=== PATIENT | male | born 1940 | race Caucasian/White ===

== ENCOUNTER → 2016-08-23 | Outpatient (CLI) | payer MEDICARE, BC ==
--- NOTE | 2016-08-23 13:47 | CR ---
EXAMINATION: Lumbar spine HISTORY: Sciatica COMPARISON: None TECHNIQUE: AP and lateral views FINDINGS: There is a trace retrolisthesis of L2 on L3. There is likely minimal wedging of the L1 and L2 vertebral bodies. Mild disc space narrowing is noted at L5-S1. Mild marginal osteophytes are not ed. Mild vascular calcifications are noted. The SI joints are symmetric. IMPRESSION: Mild degenerative changes without acute findings.
== END ==
LOC: MW.CHFP 09:31
PROVIDERS: ATTEND Emergency Medicine
DX: M54.40 Lumbago with sciatica, unspecified side (principal); M47.896 Other spondylosis, lumbar region; L98.9 Disorder of the skin and subcutaneous tissue, unspecified
CPT/HCPCS: 72100; 72100-26; G0463

== ENCOUNTER 2017-06-30 21:46 | Emergency (ER) | payer MEDICARE, BC ==
[2017-06-30] MEDS ORDERED: Ondansetron 4 MG/2 ML SDV IVPUSH ONE (22:03)
[2017-06-30] MEDS ORDERED: Sodium Chloride 0.9% 10 ML Syringe FLUSH PRN (22:03)
[2017-06-30] MEDS ORDERED: Sodium Chloride 0.9% 2.5 ML Syringe FLUSH PRN (22:03)
[2017-06-30] MEDS ORDERED: Aspirin 81 MG Tab.Chew PO ONE (22:03)
[2017-06-30] MEDS ORDERED: Morphine 4 MG/ML Syringe IVPUSH ONE (22:03)
--- NOTE | 2017-06-30 22:12 | EDM.PDOC ---
ED HPI GENERAL MEDICAL PROBLEM - General Chief Complaint: Abdominal Pain Stated Complaint: CHEST PAIN Time Seen by Provider: 06/30/17 22:50 - History of Present Illness INITIAL COMMENTS - FREE TEXT/NARRATIVE: HISTORY AND PHYSICAL: History of present illness: Patient is a 76-year-old white male with history of coronary artery disease who had stent placement 2 years prior [facility] who presents with her chest pain that started 3 hours prior to arrival patient equivocates regarding diaphoresis or shortness of breath he denies nausea vomiting or palpitations he is currently on Cialis. Review of systems: As per history of present illness and below otherwise all systems reviewed and negative. Past medical history: As per history of present illness and as reviewed below otherwise noncontributory. Surgical history: As per history of present illness and as reviewed below otherwise noncontributory. Social history: No reported history of drug or alcohol abuse. Family history: As per history of present illness and as reviewed below otherwise noncontributory. Physical exam: HEENT: Atraumatic, normocephalic, pupils reactive, negative for conjunctival pallor or scleral icterus, mucous membranes moist, throat clear, neck supple, nontender, trachea midline. Lungs: Clear to auscultation, breath sounds equal bilaterally, chest nontender. Heart: S1S2, regular, negative for clicks, rubs, or JVD. Abdomen: Soft, nondistended, nontender. Negative for masses or hepatosplenomegaly. Negative for costovertebral tenderness. Pelvis: Stable nontender. Genitourinary: Deferred. Rectal: Deferred. Extremities: Atraumatic, negative for cords or calf pain. Neurovascular unremarkable. Neuro: Awake, alert, oriented. Cranial nerves II through XII unremarkable. Cerebellum unremarkable. Motor and sensory unremarkable throughout. Exam nonfocal. Diagnostics: CBC CMP PT/INR troponin chest x-ray EKG Therapeutics: Saline 125 an hour morphine sulfate 4 mg IV Zofran 4 mg IV aspirin 324 mg by mouth Impression: #1 chest pain #2 history coronary artery disease with stent placement 2 Definitive disposition and diagnosis as appropriate pending reevaluation and review of above. Upper Abdomen Pain Score (Numeric/FACES): 8 - Related Data Allergies Allergy/AdvReac Type Severity Reaction Status Date / Time codeine Allergy unknown Verified 06/30/17 21:59 Xnsfufh-Baf-Ouv Reductase Allergy UNKNOWN Verified 06/30/17 21:59 Inhibitor sulfamethoxazole Allergy UNKNOWN Verified 06/30/17 21:59 [From Bactrim] trimethoprim [From Bactrim] Allergy UNKNOWN Verified 06/30/17 21:59 Home Meds: Home Meds Ezetimibe/Simvastatin [Vytorin 10-40 mg Tablet] 1 tab PO DAILY 07/08/14 [History ] Pantoprazole [ProTONIX Granules] 1 tab PO DAILY 07/08/14 [History] Aspirin [Adult Low Dose Aspirin EC] 1 tab PO DAILY 07/10/14 [History] ALPRAZolam [Alprazolam] 0.25 mg PO DAILY 06/30/17 [History] Cholecalciferol (Vitamin D3) [Vitamin D] 2,000 unit PO DAILY 06/30/17 [History] Fish Oil/[place]-3 Fatty Acids [Fish Oil] 500 mg PO DAILY 06/30/17 [History] Tadalafil [Cialis] 5 mg PO DAILY 06/30/17 [History] amLODIPine [Norvasc] 2.5 mg PO DAILY 06/30/17 [History] Social & Family History - Tobacco Use Smoking Status *Q: Never Smoker - Alcohol Use Days Per Week of Alcohol Use: 0 Number of Drinks Per Day: 0 Total Drinks Per Week: 0 - Recreational Drug Use Recreational Drug Use: No Drug Use in Last 12 Months: No ED ROS GENERAL - Review of Systems Review Of Systems: ROS reveals no pertinent complaints other than HPI. ED EXAM, GENERAL - Physical Exam Exam: See Below (See dictation) Course - Vital Signs Last Recorded V/S: Last Vital Signs Temp 36.6 C 06/30/17 21:56 Pulse 73 06/30/17 21:56 Resp 16 06/30/17 21:56 BP 189/110 H 06/30/17 21:56 Pulse Ox 94 L 06/30/17 21:56 - Orders/Labs/Meds Orders: Active Orders 24 hr Category Date Time Status EKG Documentation Completion [RC] STAT Care 06/30/17 22:03 Active Oxygen Therapy, ED [RC] ASDIRECTED Care 06/30/17 22:02 Active Chest 1V Frontal [CR] Stat Exams 06/30/17 22:03 Taken Sodium Chloride 0.9% [Normal Saline] 1,000 ml Med 06/30/17 22:15 Active IV STAT Sodium Chloride 0.9% [Saline Flush] Med 06/30/17 22:03 Active 10 ml FLUSH ASDIRECTED PRN Sodium Chloride 0.9% [Saline Flush] Med 06/30/17 22:03 Active 2.5 ml FLUSH ASDIRECTED PRN Saline Lock Insert [OM.PC] Stat Oth 06/30/17 22:02 Ordered Medication Orders Sodium Chloride (Normal Saline) 1,000 mls @ 125 mls/hr IV STAT SHIRA Last Admin: 06/30/17 22:17 Dose: 125 mls/hr Sodium Chloride (Saline Flush) 10 ml FLUSH ASDIRECTED PRN PRN Reason: Keep Vein Open Last Admin: 06/30/17 22:22 Dose: 10 ml Sodium Chloride (Saline Flush) 2.5 ml FLUSH ASDIRECTED PRN PRN Reason: Keep Vein Open Last Admin: 06/30/17 22:22 Dose: 2.5 ml Labs: Laboratory Tests 06/30/17 06/30/17 06/30/17 Range/Units 22:12 22:12 22:12 WBC 6.87 (4.0-11.0) K/uL RBC 5.47 (4.50-5.90) M/uL Hgb 15.5 (13.0-17.0) g/dL Hct 44.0 (38.0-50.0) % MCV 80.4 (80.0-98.0) fL MCH 28.3 (27.0-32.0) pg MCHC 35.2 (31.0-37.0) g/dL RDW Std Deviation 39.8 (28.0-62.0) fl RDW Coeff of Cherise 14 (11.0-15.0) % Plt Count 182 (150-400) K/uL MPV 9.90 (7.40-12.00) fL Neut % (Auto) 48.4 (48.0-80.0) % Lymph % (Auto) 38.0 (16.0-40.0) % Ashley % (Auto) 9.8 (0.0-15.0) % Eos % (Auto) 3.2 (0.0-7.0) % Baso % (Auto) 0.6 (0.0-1.5) % Neut # (Auto) 3.3 (1.4-5.7) K/uL Lymph # (Auto) 2.6 H (0.6-2.4) K/uL Ashley # (Auto) 0.7 (0.0-0.8) K/uL Eos # (Auto) 0.2 (0.0-0.7) K/uL Baso # (Auto) 0.0 (0.0-0.1) K/uL Nucleated RBC % 0.0 /100WBC Nucleated RBCs # 0 K/uL INR 0.95 Sodium 140 (136-148) mmol/L Potassium 3.9 (3.5-5.1) mmol/L Chloride 105 (98-107) mmol/L Carbon Dioxide 24.9 (21.0-32.0) mmol/L BUN 19 H (7.0-18.0) mg/dL Creatinine 1.3 (0.8-1.3) mg/dL Est Cr Clr Drug Dosing 51.47 mL/min Estimated GFR (MDRD) 54.0 ml/min Glucose 126 H (74-106) mg/dL Calcium 9.2 (8.5-10.1) mg/dL Total Bilirubin 0.4 (0.2-1.0) mg/dL AST 23 (15-37) IU/L ALT 31 (14-63) IU/L Alkaline Phosphatase 70 (46-116) U/L Troponin I < 0.050 (0.000-0.056) ng/mL B-Natriuretic Peptide (<100) PG/ML Total Protein 7.1 (6.4-8.2) g/dL Albumin 4.1 (3.4-5.0) g/dL Globulin 3.0 (2.0-3.5) g/dL Albumin/Globulin Ratio 1.4 (1.3-2.8) 06/30/17 Range/Units 22:12 WBC (4.0-11.0) K/uL RBC (4.50-5.90) M/uL Hgb (13.0-17.0) g/dL Hct (38.0-50.0) % MCV (80.0-98.0) fL MCH (27.0-32.0) pg MCHC (31.0-37.0) g/dL RDW Std Deviation (28.0-62.0) fl RDW Coeff of Cherise (11.0-15.0) % Plt Count (150-400) K/uL MPV (7.40-12.00) fL Neut % (Auto) (48.0-80.0) % Lymph % (Auto) (16.0-40.0) % Ashley % (Auto) (0.0-15.0) % Eos % (Auto) (0.0-7.0) % Baso % (Auto) (0.0-1.5) % Neut # (Auto) (1.4-5.7) K/uL Lymph # (Auto) (0.6-2.4) K/uL Ashley # (Auto) (0.0-0.8) K/uL Eos # (Auto) (0.0-0.7) K/uL Baso # (Auto) (0.0-0.1) K/uL Nucleated RBC % /100WBC Nucleated RBCs # K/uL INR Sodium (136-148) mmol/L Potassium (3.5-5.1) mmol/L Chloride (98-107) mmol/L Carbon Dioxide (21.0-32.0) mmol/L BUN (7.0-18.0) mg/dL Creatinine (0.8-1.3) mg/dL Est Cr Clr Drug Dosing mL/min Estimated GFR (MDRD) ml/min Glucose (74-106) mg/dL Calcium (8.5-10.1) mg/dL Total Bilirubin (0.2-1.0) mg/dL AST (15-37) IU/L ALT (14-63) IU/L Alkaline Phosphatase (46-116) U/L Troponin I (0.000-0.056) ng/mL B-Natriuretic Peptide 50 (<100) PG/ML Total Protein (6.4-8.2) g/dL Albumin (3.4-5.0) g/dL Globulin (2.0-3.5) g/dL Albumin/Globulin Ratio (1.3-2.8) Meds: Medications Generic Name Dose Route Start Last Admin Trade Name Freq PRN Reason Stop Dose Admin Sodium Chloride 1,000 mls @ 125 mls/hr 06/30/17 22:15 06/30/17 22:17 Normal Saline IV 125 mls/hr STAT SHIRA Administration Sodium Chloride 10 ml 06/30/17 22:03 06/30/17 22:22 Saline Flush FLUSH 10 ml ASDIRECTED PRN Administration Keep Vein Open Sodium Chloride 2.5 ml 06/30/17 22:03 06/30/17 22:22 Saline Flush FLUSH 2.5 ml ASDIRECTED PRN Administration Keep Vein Open Discontinued Medications Generic Name Dose Route Start Last Admin Trade Name Dino PRN Reason Stop Dose Admin Aspirin 324 mg 06/30/17 22:03 06/30/17 22:21 Aspirin PO 06/30/17 22:04 324 mg ONETIME ONE Administration Morphine Sulfate 4 mg 06/30/17 22:03 06/30/17 22:20 Morphine IVPUSH 06/30/17 22:04 4 mg ONETIME ONE Administration Ondansetron HCl 4 mg 06/30/17 22:03 06/30/17 22:18 Zofran IVPUSH 06/30/17 22:04 4 mg ONETIME ONE Administration Departure - Departure Time of Disposition: 22:50 Disposition: DC/Tfer to Acute Hospital 02 Condition: Serious Clinical Impression: Unstable angina - Discharge Information Referrals: Grant Rivas MD [Primary Care Provider] - Forms: ED Department Discharge - My Orders Last 24 Hours: My Active Orders 06/30/17 22:02 Oxygen Therapy, ED [RC] ASDIRECTED Saline Lock Insert [OM.PC] Stat 06/30/17 22:03 EKG Documentation Completion [RC] STAT Chest 1V Frontal [CR] Stat Sodium Chloride 0.9% [Saline Flush] 10 ml FLUSH ASDIRECTED PRN Sodium Chloride 0.9% [Saline Flush] 2.5 ml FLUSH ASDIRECTED PRN 06/30/17 22:15 Sodium Chloride 0.9% [Normal Saline] 1,000 ml IV STAT - Assessment/Plan Last 24 Hours: My Active Orders 06/30/17 22:02 Oxygen Therapy, ED [RC] ASDIRECTED Saline Lock Insert [OM.PC] Stat 06/30/17 22:03 EKG Documentation Completion [RC] STAT Chest 1V Frontal [CR] Stat Sodium Chloride 0.9% [Saline Flush] 10 ml FLUSH ASDIRECTED PRN Sodium Chloride 0.9% [Saline Flush] 2.5 ml FLUSH ASDIRECTED PRN 06/30/17 22:15 Sodium Chloride 0.9% [Normal Saline] 1,000 ml IV STAT
[2017-06-30] MEDS ORDERED: Sodium Chloride 0.9% 1,000 ML IV SCH (22:15)
[2017-06-30 22:46] LABS: CHLORIDE,CL 105 mmol/L (98-107); SODIUM,NA 140 mmol/L (136-148)
[2017-07-01 02:22] VITALS: BP 155/98
--- NOTE | 2017-07-03 11:40 | CR ---
EXAM DATE: 06/30/17 PATIENT'S AGE: 76 Patient: BIGG ROSARIO Facility: [place], [place] Site . Site : [id number] Study: XRay Chest [id number]/23/2018 10:26:12 PM Ordering Physician: Doctor Jaffe Final Report: HISTORY: Pain, shortness of breath and vomiting. FINDINGS: AP portable chest radiograph is compared 01 January 2016. Cardiac silhouette acceptable size. Pulmonary vasculature is free of cephalization. No consolidation or pleural effusion is seen. The bony structures are unremarkable. IMPRESSION: No acute cardiopulmonary disease. Dictated by Kavya Gandara MD @ 06/30/2017 10:34:05 PM Dictated by: Kavya Gandara MD @ 06/30/2017 22:34:12 (Electronic Signature) Report Signed by Proxy. [facility]
== END 2017-06-30 23:56 ==
LOC: MW.ED 21:46
DX: I20.0 Unstable angina (principal); Z86.79 Personal history of other diseases of the circulatory system; Z88.5 Allergy status to narcotic agent; Z88.2 Allergy status to sulfonamides; Z88.1 Allergy status to other antibiotic agents; Z79.899 Other long term (current) drug therapy
CPT/HCPCS: 36415; 71045; 80053; 83880; 84484; 85025; 85610; 93005; 96361; 96374; 96375; 99285; A9270; J2270; J2405; J7040; 99284

== ENCOUNTER 2019-08-09 14:46 | Emergency (ER) | payer MEDICARE, BC ==
[2019-08-09] MEDS ORDERED: Sodium Chloride 0.9% 2.5 ML Syringe FLUSH PRN (14:49)
[2019-08-09] MEDS ORDERED: Sodium Chloride 0.9% 10 ML Syringe FLUSH PRN (14:49)
[2019-08-09] MEDS ORDERED: Ondansetron 4 MG/2 ML SDV IVPUSH ONE (14:49)
--- NOTE | 2019-08-09 15:09 | EDM.PDOC ---
ED HPI GENERAL MEDICAL PROBLEM - General Chief Complaint: Chest Pain Stated Complaint: BACK CHEST PAIN SOB Time Seen by Provider: 08/09/19 14:47 Source of Information: Reports: Patient, Old Records - History of Present Illness INITIAL COMMENTS - FREE TEXT/NARRATIVE: 78-year-old male presenting with worsening chest and back pain associated with abdominal pain nausea and vomiting. Symptoms started 8 days ago after a fall initially pain was isolated to the left chest and flank. He had an x-ray that did not reveal a rib fracture. He was treated initially with tramadol. However he has had more significant and severe left flank pain as well as now severe substernal chest pain with worsening associated abdominal pain. He does have a history of diverticulitis and he was placed on antibiotics by his primary care doctor yesterday. Presents in today for worsening symptoms nausea and vomiting. The vomiting is associated with diaphoresis and lightheadedness. Chest Pain Pain Score (Numeric/FACES): 8 - Related Data Allergies Allergy/AdvReac Type Severity Reaction Status Date / Time codeine Allergy unknown Verified 08/09/19 15:16 Smpurib-Mwk-Hrx Reductase Allergy UNKNOWN Verified 08/09/19 15:16 Inhibitor sulfamethoxazole Allergy UNKNOWN Verified 08/09/19 15:16 [From Bactrim] trimethoprim [From Bactrim] Allergy UNKNOWN Verified 08/09/19 15:16 Home Meds: Home Meds ALPRAZolam [Xanax XR] 0.5 mg PO BEDTIME PRN 08/09/19 [History] Aspirin 81 mg PO DAILY 08/09/19 [History] Cholecalciferol (Vitamin D3) [Vitamin D3] 5,000 unit PO WEEKLY 08/09/19 [History ] Ezetimibe/Simvastatin [Vytorin 10-40 mg Tablet] 1 each PO DAILY 08/09/19 [ History] Lidocaine 5% [Lidoderm 5%] 1 patch TOP DAILY #14 patch 08/09/19 [Rx] Moxifloxacin HCl 1 tab PO DAILY 08/09/19 [History] [place]-3/DHA/Epa/Fish Oil [Fish Oil 500 MG Softgel] 1 tab PO DAILY 08/09/19 [ History] Pantoprazole Sodium [Protonix] 40 mg PO DAILY PRN 08/09/19 [History] oxyCODONE HCl/Acetaminophen [Oxycodone-Acetaminophen 5-325] 1 each PO DAILY 04/29 [History] tadalafiL [Cialis] 5 mg PO DAILY 08/09/19 [History] Past Medical History HEENT History: Reports: Hard of Hearing Cardiovascular History: Reports: High Cholesterol, Hypertension Gastrointestinal History: Reports: Diverticulosis Oncologic (Cancer) History: Reports: Prostate - Past Surgical History Cardiovascular Surgical History: Reports: Carotid Stents Male Surgical History: Reports: Prostatectomy Social & Family History - Family History Family Medical History: Noncontributory - Caffeine Use Caffeine Use: Reports: Coffee ED ROS GENERAL - Review of Systems Review Of Systems: See Below Free Text/Narrative/Comment: General: No fever. Skin: No rash. Eyes: No vision problems. ENT: No sore throat. Neck: No neck stiffness. Respiratory: No shortness of breath. Cardiac: Per HPI Gastrointestinal: Per HPI Urinary: No dysuria. Musculoskeletal: No myalgias/arthralgias. Neurologic: No headache. ED EXAM, GENERAL - Physical Exam Exam: See Below Free Text/Narrative:: General Appearance: No acute distress initially but then actively vomiting emesis is nonbloody nonbilious but quite copious Skin: No rash HEENT: Normocephalic/atraumatic, sclera anicteric, mucous membranes moist Neck: Normal range of motion Chest and Lungs: Bilateral breath sounds, clear to auscultation Cardiovascular: Regular rate and rhythm, no murmur Abdomen: Soft some tenderness but evaluation limited by patient's inability to lie flat initially. Back: Normal Musculoskeletal: No edema or tenderness Neurologic: Awake, alert, no obvious deficits, moving all extremities Psychiatric: Appropriate, cooperative EKG INTERPRETATION EKG Interpretation Comments: EKG #1 obtained at 1454 demonstrates sinus rhythm without acute ischemia QRS and QTc are normal EKG #2 obtained at 1555 demonstrates normal sinus rhythm normal axis no acute ischemia and normal intervals per my interpretation. Course - Vital Signs Last Recorded V/S: Last Vital Signs Temp 96.1 F L 08/09/19 15:10 Pulse 60 08/09/19 17:35 Resp 18 08/09/19 17:35 BP 124/79 08/09/19 17:35 Pulse Ox 98 08/09/19 17:35 - Orders/Labs/Meds Orders: Active Orders 24 hr Category Date Time Status EKG Documentation Completion [RC] STAT Care 08/09/19 14:49 Active EKG Documentation Completion [RC] STAT Care 08/09/19 17:46 Active Sodium Chloride 0.9% [Saline Flush] Med 08/09/19 14:49 Active 10 ml FLUSH ASDIRECTED PRN Sodium Chloride 0.9% [Saline Flush] Med 08/09/19 14:49 Active 2.5 ml FLUSH ASDIRECTED PRN Saline Lock Insert [OM.PC] Stat Oth 08/09/19 14:49 Ordered Medication Orders Sodium Chloride (Saline Flush) 10 ml FLUSH ASDIRECTED PRN PRN Reason: Keep Vein Open Last Admin: 08/09/19 15:05 Dose: 10 ml Sodium Chloride (Saline Flush) 2.5 ml FLUSH ASDIRECTED PRN PRN Reason: Keep Vein Open Last Admin: 08/09/19 15:05 Dose: 2.5 ml Labs: Laboratory Tests 08/09/19 08/09/19 08/09/19 Range/Units 14:58 14:58 14:58 WBC 7.60 (4.0-11.0) K/uL RBC 5.39 (4.50-5.90) M/uL Hgb 15.4 (13.0-17.0) g/dL Hct 44.7 (38.0-50.0) % MCV 82.9 (80.0-98.0) fL MCH 28.6 (27.0-32.0) pg MCHC 34.5 (31.0-37.0) g/dL RDW Std Deviation 40.6 (28.0-62.0) fl RDW Coeff of Cherise 13 (11.0-15.0) % Plt Count 204 (150-400) K/uL MPV 10.10 (7.40-12.00) fL Neut % (Auto) 48.2 (48.0-80.0) % Lymph % (Auto) 41.3 H (16.0-40.0) % [place] % (Auto) 7.1 (0.0-15.0) % Eos % (Auto) 2.9 (0.0-7.0) % Baso % (Auto) 0.5 (0.0-1.5) % Neut # (Auto) 3.7 (1.4-5.7) K/uL Lymph # (Auto) 3.1 H (0.6-2.4) K/uL [place] # (Auto) 0.5 (0.0-0.8) K/uL Eos # (Auto) 0.2 (0.0-0.7) K/uL Baso # (Auto) 0.0 (0.0-0.1) K/uL Nucleated RBC % 0.0 /100WBC Nucleated RBCs # 0 K/uL Sodium 139 (136-148) mmol/L Potassium 3.9 (3.5-5.1) mmol/L Chloride 103 (98-107) mmol/L Carbon Dioxide 29.3 (21.0-32.0) mmol/L BUN 20 H (7.0-18.0) mg/dL Creatinine 1.3 (0.8-1.3) mg/dL Est Cr Clr Drug Dosing 46.77 mL/min Estimated GFR (MDRD) 53.7 ml/min Glucose 116 H (74-106) mg/dL Calcium 9.0 (8.5-10.1) mg/dL Total Bilirubin 0.5 (0.2-1.0) mg/dL AST 19 (15-37) IU/L ALT 25 (14-63) IU/L Alkaline Phosphatase 78 (46-116) U/L Troponin I < 0.050 (0.000-0.056) ng/mL Total Protein 7.5 (6.4-8.2) g/dL Albumin 3.9 (3.4-5.0) g/dL Globulin 3.6 (2.6-4.0) g/dL Albumin/Globulin Ratio 1.1 (0.9-1.6) Lipase 88 (73-393) U/L Urine Color Urine Appearance Urine pH (5.0-8.0) Ur Specific [place] (1.001-1.035) Urine Protein (NEGATIVE) mg/dL Urine Glucose (UA) (NEGATIVE) mg/dL Urine Ketones (NEGATIVE) mg/dL Urine Occult Blood (NEGATIVE) Urine Nitrite (NEGATIVE) Urine Bilirubin (NEGATIVE) Urine Urobilinogen (<2.0) EU/dL Ur Leukocyte Esterase (NEGATIVE) Urine RBC (0-2/HPF) Urine WBC (0-5/HPF) Ur Epithelial Cells (NONE-FEW) Urine Bacteria (NEGATIVE) 05/01/20 05/01/20 Range/Units 17:40 17:52 WBC (4.0-11.0) K/uL RBC (4.50-5.90) M/uL Hgb (13.0-17.0) g/dL Hct (38.0-50.0) % MCV (80.0-98.0) fL MCH (27.0-32.0) pg MCHC (31.0-37.0) g/dL RDW Std Deviation (28.0-62.0) fl RDW Coeff of Cherise (11.0-15.0) % Plt Count (150-400) K/uL MPV (7.40-12.00) fL Neut % (Auto) (48.0-80.0) % Lymph % (Auto) (16.0-40.0) % [place] % (Auto) (0.0-15.0) % Eos % (Auto) (0.0-7.0) % Baso % (Auto) (0.0-1.5) % Neut # (Auto) (1.4-5.7) K/uL Lymph # (Auto) (0.6-2.4) K/uL [place] # (Auto) (0.0-0.8) K/uL Eos # (Auto) (0.0-0.7) K/uL Baso # (Auto) (0.0-0.1) K/uL Nucleated RBC % /100WBC Nucleated RBCs # K/uL Sodium (136-148) mmol/L Potassium (3.5-5.1) mmol/L Chloride (98-107) mmol/L Carbon Dioxide (21.0-32.0) mmol/L BUN (7.0-18.0) mg/dL Creatinine (0.8-1.3) mg/dL Est Cr Clr Drug Dosing mL/min Estimated GFR (MDRD) ml/min Glucose (74-106) mg/dL Calcium (8.5-10.1) mg/dL Total Bilirubin (0.2-1.0) mg/dL AST (15-37) IU/L ALT (14-63) IU/L Alkaline Phosphatase (46-116) U/L Troponin I < 0.050 (0.000-0.056) ng/mL Total Protein (6.4-8.2) g/dL Albumin (3.4-5.0) g/dL Globulin (2.6-4.0) g/dL Albumin/Globulin Ratio (0.9-1.6) Lipase (73-393) U/L Urine Color YELLOW Urine Appearance CLEAR Urine pH 5.0 (5.0-8.0) Ur Specific [place] 1.015 (1.001-1.035) Urine Protein NEGATIVE (NEGATIVE) mg/dL Urine Glucose (UA) NEGATIVE (NEGATIVE) mg/dL Urine Ketones NEGATIVE (NEGATIVE) mg/dL Urine Occult Blood NEGATIVE (NEGATIVE) Urine Nitrite NEGATIVE (NEGATIVE) Urine Bilirubin NEGATIVE (NEGATIVE) Urine Urobilinogen 0.2 (<2.0) EU/dL Ur Leukocyte Esterase NEGATIVE (NEGATIVE) Urine RBC 0-1 (0-2/HPF) Urine WBC 0-1 (0-5/HPF) Ur Epithelial Cells RARE (NONE-FEW) Urine Bacteria RARE (NEGATIVE) Meds: Medications Generic Name Dose Route Start Last Admin Trade Name Dino PRN Reason Stop Dose Admin Sodium Chloride 10 ml 08/09/19 14:49 08/09/19 15:05 Saline Flush FLUSH 10 ml ASDIRECTED PRN Administration Keep Vein Open Sodium Chloride 2.5 ml 08/09/19 14:49 08/09/19 15:05 Saline Flush FLUSH 2.5 ml ASDIRECTED PRN Administration Keep Vein Open Discontinued Medications Generic Name Dose Route Start Last Admin Trade Name Dino PRN Reason Stop Dose Admin Iopamidol 100 ml 08/09/19 16:24 08/09/19 16:25 Isovue Multipack-370 (76%) IVPUSH 08/09/19 16:25 100 ml ONETIME ONE Administration Lidocaine 700 mg 08/09/19 18:26 Lidoderm 5% TOP 08/09/19 18:27 ONETIME ONE Morphine Sulfate 4 mg 08/09/19 15:05 08/09/19 16:37 Morphine IVPUSH 08/09/19 15:06 4 mg ONETIME ONE Administration Morphine Sulfate 4 mg 08/09/19 17:27 Morphine IVPUSH 08/09/19 17:28 ONETIME ONE Ondansetron HCl 4 mg 08/09/19 14:49 08/09/19 15:05 Zofran IVPUSH 08/09/19 14:50 4 mg ONETIME ONE Administration Departure - Departure Time of Disposition: 18:36 Disposition: Home, Self-Care 01 Clinical Impression: Contusion of rib on left side, Near syncope, Bilateral inguinal hernia without obstruction or gangrene Prescriptions: Lidocaine 5% [Lidoderm 5%] 1 patch TOP DAILY #14 patch Instructions: Inguinal Hernia, Adult, [id number], Rib Contusion Referrals: Grant Rivas MD [Primary Care Provider] - Forms: ED Department Discharge Additional Instructions: I recommend adding the lidocaine patch to help with your chest wall pain. The CT scan today showed that you do not have diverticulitis. For this reason Dr. Rivas and I agree that you should stop taking the moxifloxacin at this point. Please be sure to follow-up with Dr. Rivas next week. If your symptoms worsen or any new concerning symptoms develop please call Dr. Rivas's office right away or return to the emergency room. I think your lower abdominal pain is likely due to your inguinal hernias. Like we discussed the choice to repair these as a complicated 1 and hopeful that in the coming days that pain will improve. However please mention this to Dr. Washington but he can talk to you about your options. The following information is given to patients seen in the emergency department who are being discharged to home. This information is to outline your options for follow-up care. We provide all patients seen in our emergency department with a follow-up referral. The need for follow-up, as well as the timing and circumstances, are variable depending upon the specifics of your emergency department visit. If you don't have a primary care physician on staff, we will provide you with a referral. We always advise you to contact your personal physician following an emergency department visit to inform them of the circumstance of the visit and for follow-up with them and/or the need for any referrals to a consulting specialist. The emergency department will also refer you to a specialist when appropriate. This referral assures that you have the opportunity for follow-up care with a specialist. All of these measure are taken in an effort to provide you with optimal care, which includes your follow-up. Under all circumstances we always encourage you to contact your private physician who remains a resource for coordinating your care. When calling for follow-up care, please make the office aware that this follow-up is from your recent emergency room visit. If for any reason you are refused follow-up, please contact the [facility] Emergency Department at and asked to speak to the emergency department charge nurse. Sepsis Event Note - Focused Exam Vital Signs: Vital Signs Temp Pulse Resp BP Pulse Ox 08/09/19 17:35 60 18 124/79 98 08/09/19 16:37 67 18 146/71 H 96 08/09/19 15:10 96.1 F L 67 20 146/71 H 97 Date Exam was Performed: 08/09/19 Time Exam was Performed: 18:35 - My Orders Last 24 Hours: My Active Orders 08/09/19 17:46 EKG Documentation Completion [RC] STAT - Assessment/Plan Last 24 Hours: My Active Orders 08/09/19 17:46 EKG Documentation Completion [RC] STAT Assessment:: 78-year-old male presenting with initially left chest and flank pain but now severe back and abdominal pain associate with nausea and vomiting. EKG is without acute ischemia ACS remains a consideration but I also of concern for aortic dissection given the associated severe back pain. Given the significant vomiting and the concern for potential diverticulitis SBO was considered I think this is less likely worsening diverticulitis with abscess is also a consideration. Given the concern for aortic dissection the patient's significant symptoms CT angiogram of the chest with extension into the abdomen pelvis has been ordered morphine and Zofran for symptoms as well as CBC, CMP, troponin. Lipase as well and will reassess symptoms. Patient's labs are normal CBC, CMP, troponin, urinalysis. CT scan demonstrates bilateral inguinal hernias with a loop of colon in each but no signs of obstruction patient was able to urinate without difficulty. He is aware of those hernias and he has some right inguinal tenderness on repeat exam. Remainder of abdominal exam is benign he is ambulatory with steady gait he states that he feels quite well at this time. I suspect that the episode of diaphoresis and emesis that I witnessed on arrival was vasovagal near syncopal episode. His EKGs have been without abnormal finding his blood work is normal CT angios of the chest abdomen pelvis was likewise unremarkable. Patient does not have any diverticulitis on the CT scan so he will stop the moxifloxacin. We will add a lidocaine patch to his pain management regimen. I discussed the case with Dr. Rivas with the patient's primary care provider. If his repeat troponin is also unremarkable and he tolerates p.o. patient will go home with a lidocaine patch and follow-up with Dr. Rivas Repeat troponin is negative patient tolerated p.o. well he feels well he updated his daughter who expresses understanding about the plan of care he will follow-up with Dr. Washington.
[2019-08-09] MEDS: Morphine 4 MG/ML Syringe IVPUSH ONE ×2 (15:13→16:37)
--- NOTE | 2019-08-09 15:35 | CR ---
Chest: Portable view of the chest was obtained. Comparison: Prior chest x-ray of 08/01/19. Heart size appears within normal limits for portable technique. Tortuous thoracic aorta is seen. Lungs are clear with no acute parenchymal change. No acute bony abnormality is appreciated. Impression: 1. Nothing acute is seen on portable chest x-ray. Diagnostic code #1 This report was dictated in MDT
[2019-08-09 15:40] LABS: BLOOD UREA NITROGEN,BUN 20 mg/dL (7.0-18.0); CARBON DIOXIDE,CO2 29.3 mmol/L (21.0-32.0); CHLORIDE,CL 103 mmol/L (98-107); GLUCOSE RANDOM 116 mg/dL (74-106); POTASSIUM,K 3.9 mmol/L (3.5-5.1); SODIUM,NA 139 mmol/L (136-148)
[2019-08-09] MEDS ORDERED: Iopamidol 755 MG/ML 200 ML Multipack Bottle IVPUSH ONE (16:24)
--- NOTE | 2019-08-09 17:17 | CT ---
This study was dictated as part of CT abdomen and pelvis exam.
--- NOTE | 2019-08-09 17:17 | CT ---
CT chest Technique: Multiple axial sections were obtained through the chest. Intravenous contrast was utilized. Contrast seen within the aorta and pulmonary arteries. Aorta shows no aneurysm or dissection. No pulmonary embolism is seen on this exam. No pericardial thickening is seen. Mediastinum and hilar region show small lymph nodes believed to be within normal limits. No axillary adenopathy is appreciated. Thick linear density noted within the right lower lung as well as lesser parenchymal density within the left lower and left upper lung. Findings most likely represent a combination of atelectasis and scarring. Lungs otherwise are clear with no acute parenchymal change. Bone window settings were reviewed which show no acute osseous finding. Impression: 1. Linear densities within both lung bases felt compatible with a combination of scarring and atelectasis. 2. No findings of abdominal aortic aneurysm or dissection. No pulmonary embolism is seen. 3. Nothing acute is otherwise seen on CT study of the chest. Diagnostic code #2 CT abdomen and pelvis Technique: Multiple axial sections were obtained from above the dome of the diaphragm inferiorly through the pubic symphysis. Intravenous contrast was utilized in the arterial phase. No oral contrast has been given. Findings: Low density lesion is noted within the right lobe of the liver which is felt compatible with a cyst. This cyst measures 1.2 cm in size. 2nd lesion is noted within the left lobe of the liver also felt compatible with a cyst which measures about 1.0 cm in size. No additional abnormality is seen within the liver. Spleen appears within normal limits. Adrenal glands show no nodule. Pancreas is within normal limits. Kidneys show symmetric contrast enhancement without hydronephrosis or mass. Abdominal aorta shows no aneurysm or dissection. Celiac axis and superior mesenteric arteries are patent. Patent single renal arteries are noted on both sides. Inferior mesenteric artery is patent. No focal stenosis is seen within the aorta or within the iliac vessels. Bilateral inguinal hernias are seen. Both hernias contain a loop of colon which shows no evidence of obstruction. Diverticuli are seen within the sigmoid colon. Diverticuli are also noted within the descending colon. No inflammatory change of diverticulitis is seen. Diverticuli are also noted within the right and transverse colon also showing no diverticulitis. Appendix is seen and is normal in size. Small fat-containing umbilical hernia is noted. Bone window settings were reviewed which shows degenerative change within the spine without acute osseous finding. Impression: 1. Bilateral inguinal hernias containing a loop of nondilated colon. 2. Abdominal aorta shows no aneurysm or dissection. Celiac axis, superior mesenteric artery, renal arteries and inferior mesenteric arteries are patent. 3. Cysts within the liver. Other findings believed to be incidental as noted above. 4. Nothing acute is appreciated. Diagnostic code #2 This report was dictated in MDT
[2019-08-09] MEDS ORDERED: Morphine 4 MG/ML Syringe IVPUSH ONE (17:27)
[2019-08-09] MEDS ORDERED: Lidocaine 5% 700 MG Patch TOP ONE (18:26)
[2019-08-09 19:11] VITALS: BP 126/89; PULSE 69
== END 2019-08-09 18:50 | disposition home or self-care (01) ==
LOC: MW.ED 14:46
DX: S20.212A Contusion of left front wall of thorax, initial encounter (principal); K40.20 Bilateral inguinal hernia, without obstruction or gangrene, not specified as recurrent; R55 Syncope and collapse; Z88.5 Allergy status to narcotic agent; Z88.8 Allergy status to other drugs, medicaments and biological substances; Z88.2 Allergy status to sulfonamides; I10 Essential (primary) hypertension; Z79.82 Long term (current) use of aspirin; Z79.899 Other long term (current) drug therapy; W19.XXXA Unspecified fall, initial encounter
CPT/HCPCS: 36415; 71045; 71275; 74174; 80053; 81001; 83690; 84484; 85025; 93005; 96374; 96375; 99284; A9270; J2270; J2405; Q9967

== ENCOUNTER 2020-11-28 16:38 | Emergency (ER) | payer MEDICARE, BC ==
--- NOTE | 2020-11-28 17:42 | EDM.PDOC ---
ED HPI GENERAL MEDICAL PROBLEM - General Chief Complaint: Skin Complaint Stated Complaint: RASH ON LEG Time Seen by Provider: 11/28/20 17:29 Source of Information: Reports: Patient - History of Present Illness INITIAL COMMENTS - FREE TEXT/NARRATIVE: 9-year-old male presents complaining of itchy rash to bilateral legs for a week to 10 days in duration. Patient states he had this once before and was given a cream but does not know if it actually helped. Patient denies any new creams or new clothing to this area. It is above the ankles and below the knees posteriorly bilaterally. No fevers. No exacerbating or alleviating factors - Related Data Allergies Allergy/AdvReac Type Severity Reaction Status Date / Time codeine Allergy unknown Verified 11/28/20 17:18 Legniha-Lol-Tpp Reductase Allergy UNKNOWN Verified 11/28/20 17:18 Inhibitor sulfamethoxazole Allergy UNKNOWN Verified 11/28/20 17:18 [From Bactrim] trimethoprim [From Bactrim] Allergy UNKNOWN Verified 11/28/20 17:18 Home Meds: Home Meds ALPRAZolam [Xanax XR] 0.5 mg PO BEDTIME PRN 08/09/19 [History] Aspirin 81 mg PO DAILY 08/09/19 [History] Cholecalciferol (Vitamin D3) [Vitamin D3] 5,000 unit PO WEEKLY 08/09/19 [History] Ezetimibe/Simvastatin [Vytorin 10-40 mg Tablet] 1 each PO DAILY 08/09/19 [History] Moxifloxacin HCl 1 tab PO DAILY 08/09/19 [History] [place]-3/DHA/Epa/Fish Oil [Fish Oil 500 MG Softgel] 1 tab PO DAILY 08/09/19 [History] Pantoprazole Sodium [Protonix] 40 mg PO DAILY PRN 08/09/19 [History] tadalafiL [Cialis] 5 mg PO DAILY 08/09/19 [History] hydrOXYzine HCL [Atarax] 10 mg PO Q4H #18 tab 11/28/20 [Rx] Past Medical History HEENT History: Reports: Hard of Hearing Cardiovascular History: Reports: High Cholesterol, Hypertension, Stents Gastrointestinal History: Reports: Diverticulosis Oncologic (Cancer) History: Reports: Prostate - Infectious Disease History Infectious Disease History: Reports: Novel Coronavirus - Past Surgical History Cardiovascular Surgical History: Reports: Carotid Stents GI Surgical History: Reports: Cholecystectomy, Colonoscopy Male Surgical History: Reports: Prostatectomy Social & Family History - Family History Family Medical History: No Pertinent Family History - Tobacco Use Tobacco Use Status *Q: Never Tobacco User - Caffeine Use Caffeine Use: Reports: Coffee - Recreational Drug Use Recreational Drug Use: No ED ROS GENERAL - Review of Systems Review Of Systems: See Below Constitutional: Denies: Fever Musculoskeletal: Denies: Joint Pain Skin: Reports: Rash ED EXAM, SKIN/RASH Exam: See Below Text/Narrative:: CONSTITUTIONAL: well appearing in no acute distress SKIN: Lateral lower extremity posterior calfs with a follicular type pattern of mild erythema at points where the hair used to be. There is no surrounding marked erythema. There is no definitive petechiae, there is no areas of fluctuance HENT: Normocephalic, atraumatic, NECK: normal range of motion PULMONARY: normal chest rise and fall, no respiratory distress or stridor NEUROLOGIC: normal speech, moves all extremities, grossly non-focal MUSCULOSKELETAL: no gross deformities, atraumatic bilateral lower extremities neurovascularly intact PSYCHIATRIC: normal mood and affect Course - Vital Signs Text/Narrative:: Differential diagnosis: Dermatitis, contact dermatitis, folliculitis, petechiae with thrombocytopenia, other Patient presents with rash to bilateral calf area. It is in the distribution of the hair follicles. Patient is encouraged to keep the area clean and dry. Patient should take note of any new clothing or soaps. Otherwise Atarax for itching and return precautions with PCP and dermatology follow-up discussed Last Recorded V/S: Last Vital Signs Temp 36.5 C 11/28/20 17:19 Pulse 52 L 11/28/20 18:27 Resp 18 11/28/20 17:19 BP 134/78 11/28/20 18:27 Pulse Ox 96 11/28/20 18:27 - Orders/Labs/Meds Labs: Laboratory Tests 11/28/20 11/28/20 11/28/20 Range/Units 18:00 18:00 18:00 WBC 5.59 (4.0-11.0) K/uL RBC 5.10 (4.50-5.90) M/uL Hgb 14.6 (13.0-17.0) g/dL Hct 41.7 (38.0-50.0) % MCV 81.8 (80.0-98.0) fL MCH 28.6 (27.0-32.0) pg MCHC 35.0 (31.0-37.0) g/dL RDW Std Deviation 42.0 (28.0-62.0) fl RDW Coeff of Cherise 14 (11.0-15.0) % Plt Count 178 (150-400) K/uL MPV 9.80 (7.40-12.00) fL Neut % (Auto) 47.2 L (48.0-80.0) % Lymph % (Auto) 40.8 H (16.0-40.0) % [place] % (Auto) 7.2 (0.0-15.0) % Eos % (Auto) 3.9 (0.0-7.0) % Baso % (Auto) 0.9 (0.0-1.5) % Neut # (Auto) 2.6 (1.4-5.7) K/uL Lymph # (Auto) 2.3 (0.6-2.4) K/uL [place] # (Auto) 0.4 (0.0-0.8) K/uL Eos # (Auto) 0.2 (0.0-0.7) K/uL Baso # (Auto) 0.1 (0.0-0.1) K/uL Nucleated RBC % 0.0 /100WBC Nucleated RBCs # 0 K/uL INR 1.00 Sodium 139 (136-148) mmol/L Potassium 4.3 (3.5-5.1) mmol/L Chloride 104 (98-107) mmol/L Carbon Dioxide 27.1 (21.0-32.0) mmol/L BUN 19 H (7.0-18.0) mg/dL Creatinine 1.4 H (0.8-1.3) mg/dL Est Cr Clr Drug Dosing 44.90 mL/min Estimated GFR (MDRD) 49.0 ml/min Glucose 91 (74-106) mg/dL Calcium 8.7 (8.5-10.1) mg/dL Total Bilirubin 0.5 (0.2-1.0) mg/dL AST 26 (15-37) IU/L ALT 31 (14-63) IU/L Alkaline Phosphatase 63 (46-116) U/L Total Protein 6.9 (6.4-8.2) g/dL Albumin 4.0 (3.4-5.0) g/dL Globulin 2.9 (2.6-4.0) g/dL Albumin/Globulin Ratio 1.4 (0.9-1.6) Departure - Departure Time of Disposition: 18:37 Disposition: Home, Self-Care 01 Condition: Good Clinical Impression: Dermatitis - Discharge Information Prescriptions: hydrOXYzine HCL [Atarax] 10 mg PO Q4H #18 tab Instructions: Rash, Adult Referrals: Grant Rivas MD [Primary Care Provider] - Forms: ED Department Discharge Additional Instructions: Return for fevers, worsening of rash, change or worsening condition or lack of improvement. Follow-up with primary care doctor and operation agent this coming week Sepsis Event Note (ED) - Focused Exam Vital Signs: Vital Signs Temp Pulse Resp BP Pulse Ox 11/28/20 18:27 52 L 134/78 96 11/28/20 17:51 55 L 120/97 H 95 11/28/20 17:19 36.5 C 52 L 18 115/91 H 97
[2020-11-28 18:25] LABS: CARBON DIOXIDE,CO2 27.1 mmol/L (21.0-32.0); POTASSIUM,K 4.3 mmol/L (3.5-5.1)
[2020-11-28 18:47] VITALS: BP 131/74; PULSE 55
== END 2020-11-28 18:48 | disposition home or self-care (01) ==
LOC: MW.ED 16:38
DX: L30.9 Dermatitis, unspecified (principal); E78.00 Pure hypercholesterolemia, unspecified; I10 Essential (primary) hypertension; Z88.5 Allergy status to narcotic agent; Z88.1 Allergy status to other antibiotic agents; Z88.8 Allergy status to other drugs, medicaments and biological substances; Z79.82 Long term (current) use of aspirin; Z79.899 Other long term (current) drug therapy
CPT/HCPCS: 36415; 80053; 85025; 85610; 99282; 99283